=== PATIENT | female | born 1935 | race Caucasian/White ===

== ENCOUNTER 2016-12-12 18:18 | Inpatient (IN) | payer MEDICARE, OTHER ==
[2016-12-12] MEDS ORDERED: Sodium Chloride 0.9% 1,000 ML IV ONE (19:28)
[2016-12-12] MEDS ORDERED: Sodium Chloride 0.9% 1,000 ML ONE (19:33)
[2016-12-12 19:43] LABS: BASO % 0.2 % (0.0-2.0); EOS % 0.1 % (0.0-4.0); HEMATOCRIT 44.7 % (34.0-47.0); LYMPH # 0.5 K/uL (1.0-4.3); LYMPH % 4.3 % (20.0-40.0); MEAN CELL VOLUME 94.9 fL (81.0-99.0); MEAN CORPUSCULAR HEMOGLOBIN 30.9 pg (27.0-31.0); MEAN CORPUSCULAR HGB CONC 32.5 g/dL (33.0-37.0); MONO # 0.8 K/uL (0.0-0.8); PLATELET COUNT 306 K/uL (130-400); RED CELL DISTRIBUTION WIDTH 13.3 % (11.5-14.5); WHITE BLOOD COUNT 11.7 K/uL (4.8-10.8)
[2016-12-12 19:56] LABS: POTASSIUM 4.5 mmol/L (3.6-5.2)
--- NOTE | 2016-12-12 19:57 | C.PDOC ---
History Of Present Illness The patient, an 81 y/o female, presents to the ED for evaluation of abdominal discomfort and diarrhea which began this morning. Patient states she ate a croissant and drank coffee for breakfast this morning. Afterwards, patient began experiencing multiple episodes of profuse, watery diarrhea. She also reports nausea but denies vomiting. Patient now experiencing weakness, dryness, and lightheadedness and presents for further evaluation. She denies fever, chills, dizziness. Time Seen by Provider: 12/12/16 19:10 Chief Complaint (Nursing): GI Problem History Per: Patient History/Exam Limitations: no limitations Onset/Duration Of Symptoms: Hrs Current Symptoms Are (Timing): Still Present Quality Of Discomfort: "Pain" Associated Symptoms: Nausea, Diarrhea. denies: Fever, Chills, Vomiting Additional History Per: Patient Past Medical History Reviewed: Historical Data, Nursing Documentation, Vital Signs Vital Signs: Last Vital Signs Temp 97.7 F 12/12/16 18:30 Pulse 81 12/12/16 18:30 Resp 18 12/12/16 18:30 BP 107/69 12/12/16 18:30 Pulse Ox 98 12/12/16 20:00 - Medical History PMH: HTN, Hyperlipidemia Surgical History: Tonsillectomy Family History: States: Unknown Family Hx - Social History Hx Alcohol Use: No Hx Substance Use: No - Immunization History Hx Tetanus Toxoid Vaccination: No Hx Influenza Vaccination: Yes Hx Pneumococcal Vaccination: Yes Review Of Systems Except As Marked, All Systems Reviewed And Found Negative. Constitutional: Positive for: Weakness. Negative for: Fever, Chills Gastrointestinal: Positive for: Nausea, Abdominal Pain, Diarrhea. Negative for : Vomiting Neurological: Positive for: Other (+lightheaded) Physical Exam - Physical Exam Appears: Non-toxic, No Acute Distress Skin: Normal Color, Warm, Dry Head: Atraumatic, Normacephalic Eye(s): bilateral: Normal Inspection Oral Mucosa: Dry Neck: Normal ROM, Supple Chest: Symmetrical, No Deformity, No Tenderness Cardiovascular: Rhythm Regular, No Murmur Respiratory: Normal Breath Sounds, No Rales, No Rhonchi, No Wheezing Gastrointestinal/Abdominal: Bowel Sounds, Soft, No Tenderness, No Guarding, No Rebound Back: Normal Inspection, No Vertebral Tenderness, No Paraspinal Tenderness Extremity: Normal ROM, Capillary Refill (less than 2 seconds ) Neurological/Psych: Oriented x3, Normal Speech, Normal Cognition Gait: Steady ED Course And Treatment - Laboratory Results Result Diagrams: 12/12/16 19:37 12/12/16 19:37 Lab Interpretation: Abnormal (Elevated WBC with significant bandemia, Elevated BUN Cr 22, 1.3 HCO3 17) O2 Sat by Pulse Oximetry: 98 (on RA) Pulse Ox Interpretation: Normal Progress Note: labs ordered and reviewed. Patient received IV Fluids. Reevaluation Time: 21:39 Reassessment Condition: Unchanged (Still having profuse watery stools, abdomen not tender.) - Physician Consult Information Time Consulting Physician Contacted: 21:39 Physician Contacted: Olayinka Whalen Outcome Of Conversation: Patient to be admitted for evaluation of diarrhea associated with abdominal pain and dehydration. CT angio ordered to r/o ischemic bowel. Disposition - Disposition Disposition: HOSPITALIZED Disposition Time: 21:41 Condition: STABLE - POA Present On Arrival: None - Clinical Impression Clinical Impression: Diarrhea, Dehydration - Scribe Statement The provider has reviewed the documentation as recorded by the Scribe (Carmel Culp) Provider Attestation: All medical record entries made by the Scribe were at my direction and personally dictated by me. I have reviewed the chart and agree that the record accurately reflects my personal performance of the history, physical exam, medical decision making, and the department course for this patient. I have also personally directed, reviewed, and agree with the discharge instructions and disposition.
[2016-12-12 19:58] LABS: ALB/GLOB RATIO 1.3 (1.0-2.1); BILIRUBIN,TOTAL 0.7 mg/dL (0.2-1.3)
[2016-12-12 19:59] LABS: CALCIUM 10.7 mg/dl (8.6-10.4)
[2016-12-12 20:49] LABS: NEUTROPHIL 50 % (50-75); TOTAL CELLS COUNTED 100
[2016-12-12 20:51] LABS: LARGE PLATELETS PRESENT
[2016-12-12] MEDS ORDERED: Iodixanol 320 MG/ML 100 ML BOTTLE IV ONE (21:33)
--- NOTE | 2016-12-12 21:39 | CP.PCM.HP ---
<Bakari Beltran - Last Filed: 12/13/16 00:27> History of Present Illness - History of Present Illness History of Present Illness: CC: abdominal pain, diarrhea 81 F with PMH of DM, HTN, HLD presents to [facility] with complaint of abdominal pain and diarrhea. Patient stated that her symptoms began early Saturday morning. Patient had about 30 episodes of diarrhea since that time. Patient reports sudden onset. She states she never experienced these symptoms in the past. Patient stated that Saturday evening she felt fine and had only eaten steak, rice, and beans. Patient denies recent illness or sick contacts. She is currently denying any pain, stating it had resolved. She rated that abdominal pain at its worst as 7/10 in severity. She described the pain as constant, sharp, and cramping located in the epigastrium. Patient denies any exacerbating or alleviating factors. Admits to chills, nausea, diarrhea, fatigue , weakness, incontinence. Denies fevers, cp, sob, palpitations, vomiting, urinary symptoms, URI symptoms, body aches. PMD: Dr. Tony PMH: DM, HTN, HLD Meds: As per EMR Allergy: NKDA Psh: Tonsillectomy as child Hosp: HTN urgency last year FH: ESRD, DM, CA, HTN Social: lives alone, ambulates and handles ADLs without assistance, denies tobacco/etoh/illicit drug use Present on Admission - Present on Admission Any Indicators Present on Admission: No History of DVT/PE: No History of Uncontrolled Diabetes: No Urinary Catheter: No Decubitus Ulcer Present: No Review of Systems - Constitutional Constitutional: Chills, Fatigue, Weakness. absent: Fever - EENT Eyes: absent: Blurred Vision, Change in Vision, Discharge, Loss of Peripheral Vision Ears: absent: Ear Discharge, Dizziness Nose/Mouth/Throat: absent: Nasal Congestion, Nasal Discharge, Nasal Trauma, Mouth Pain, Sore Throat - Breasts Breasts: absent: Mass, Pain - Cardiovascular Cardiovascular: absent: Chest Pain, Chest Pain at Rest, Chest Pain with Activity , Diaphoresis, Dyspnea, Palpitations - Respiratory Respiratory: absent: Cough, Dyspnea, Hemoptysis - Gastrointestinal Gastrointestinal: Abdominal Pain, Diarrhea, Fecal Incontinence, Nausea. absent : Constipation, Vomiting - Genitourinary Genitourinary: absent: Change in Urinary Stream, Difficulty Urinating, Dysuria, Urinary Incontinence - Musculoskeletal Musculoskeletal: absent: Arthralgias, Atrophy, Back Pain, Myalgias, Numbness, Stiffness, Tingling - Integumentary Integumentary: absent: Alopecia, Lesions, New Lesions, Sores - Neurological Neurological: Weakness. absent: Confusion, Dizziness, Numbness, Focal Weakness , Headaches, Paresthesias, Syncope, Tingling, Tremor, Vertigo - Psychiatric Psychiatric: absent: Anxiety, Depression, Homicidal Ideation, Suicidal Ideation - Endocrine Endocrine: Fatigue. absent: Excessive Sweating, Heat Intolorance, Palpitations , Polydipsia, Polyphagia, Polyuria - Hematologic/Lymphatic Hematologic: absent: Easy Bleeding, Easy Bruising, Lymphadenopathy Past Patient History - Past Social History Smoking Status: Never Smoked - CARDIAC Hx Hypertension: Yes - ENDOCRINE/METABOLIC Hx Diabetes Mellitus Type 2: Yes - PSYCHIATRIC Hx Substance Use: No - SURGICAL HISTORY Hx Tonsillectomy: Yes - ANESTHESIA Hx Anesthesia: No Hx Anesthesia Reactions: No Meds Allergies/Adverse Reactions: Allergies Allergy/AdvReac Type Severity Reaction Status Date / Time No Known Allergies Allergy Verified 12/12/16 18:32 Physical Exam - Constitutional Appears: No Acute Distress - Head Exam Head Exam: ATRAUMATIC, NORMOCEPHALIC - Eye Exam Eye Exam: EOMI, Normal appearance Pupil Exam: PERRL - ENT Exam ENT Exam: Mucous Membranes Dry - Neck Exam Neck exam: Positive for: Normal Inspection - Respiratory Exam Respiratory Exam: Clear to Auscultation Bilateral, NORMAL BREATHING PATTERN - Cardiovascular Exam Cardiovascular Exam: REGULAR RHYTHM, +S1, +S2 - GI/Abdominal Exam GI & Abdominal Exam: Hyperactive Bowel Sounds, Soft, Tenderness. absent: Distended, Firm, Guarding, Rebound - Extremities Exam Extremities exam: Positive for: normal capillary refill, pedal pulses present. Negative for: calf tenderness, pedal edema, tenderness - Back Exam Back exam: absent: CVA tenderness (L), CVA tenderness (R) - Neurological Exam Neurological exam: Alert, CN II-XII Intact, Oriented x3 - Psychiatric Exam Psychiatric exam: Normal Affect, Normal Mood - Skin Skin Exam: Dry, Intact, Normal Color, Warm Results - Vital Signs Recent Vital Signs: Last Vital Signs Temp 97.7 F 12/12/16 18:30 Pulse 81 05/10/17 18:30 Resp 18 12/12/16 18:30 BP 107/69 12/12/16 18:30 Pulse Ox 98 12/12/16 20:00 - Labs Result Diagrams: 12/12/16 19:37 12/12/16 19:37 Labs: Laboratory Results - last 24 hr 12/12/16 12/12/16 19:37 19:37 WBC 11.7 H RBC 4.71 Hgb 14.5 D Hct 44.7 MCV 94.9 MCH 30.9 MCHC 32.5 L RDW 13.3 Plt Count 306 MPV 8.0 Neut % (Auto) 88.4 H Lymph % (Auto) 4.3 L Mcdonald % (Auto) 7.0 Eos % (Auto) 0.1 Baso % (Auto) 0.2 Neut # 10.4 H Lymph # 0.5 L Mcdonald # 0.8 Eos # 0.0 Baso # 0.0 Neutrophils % (Manual) 50 Band Neutrophils % 33 H* Lymphocytes % (Manual) 10 L Monocytes % (Manual) 7 Platelet Estimate Normal Large Platelets Present Microcytosis (manual) Slight Tear Drop Cells Slight Sodium 135 Potassium 4.5 Chloride 98 Carbon Dioxide 17 L Anion Gap 25 H BUN 22 H Creatinine 1.3 H Est GFR ( Amer) 48 Est GFR (Non-Af Amer) 39 Random Glucose 205 H Calcium 10.7 H Total Bilirubin 0.7 AST 23 ALT 18 Alkaline Phosphatase 65 Total Protein 9.0 H Albumin 5.1 H Globulin 3.9 Albumin/Globulin Ratio 1.3 Assessment & Plan - Assessment and Plan (Free Text) Plan: 1. Diarrhea Med/surg NPO CT abd pelvis with contrast: Giardia, Norovirus, Salmonella, Shigella studies Stool culture Stool leukocytes C diff toxins Ova and parasite Influenza A & B Tylenol 650 mg PO Q6H PRN fever Zofran 4 mg IVP Q6H PRN NS 100 cc/hr 2. DM Hold metformin due to contrast ISS Accuchecks f/u HA1C Monitor glucose 3. HTN Losartan 100 mg PO daily 4. HLD Crestor 5 mg PO HS 5. Prophylactic Measures Lovenox 40 SC daily Protonix 40 mg IVP daily Scds ASA 81 mg PO daily <Olayinka Whalen - Last Filed: 12/13/16 06:23> Results - Vital Signs Recent Vital Signs: Last Vital Signs Temp 98.4 F 12/13/16 00:00 Pulse 75 12/13/16 00:00 Resp 20 12/13/16 00:00 BP 100/61 12/13/16 00:00 Pulse Ox 96 12/13/16 00:00 - Labs Result Diagrams: 12/12/16 19:37 12/12/16 19:37 Assessment & Plan - Date & Time Date: 12/13/16 (I have seen and examined the patient. I agree with the findings and plan of care as documented by Dr. Beltran. Patient with diarrhea. Denies any blood. Denies any recent antibiotic use. Stool studies. Fluid repletion. Also with diabetes. Monitor with accuchecks. Hold metformin for now. Monitor for acute changes.) Time: 06:21 Attending/Attestation - Attestation I have personally seen and examined this patient.: Yes I have fully participated in the care of the patient.: Yes I have reviewed all pertinent clinical information: Yes
[2016-12-12 22:29] VITALS: RESP 20
--- NOTE | 2016-12-12 22:31 | CT ---
EXAM: CT Abdomen and Pelvis With Intravenous Contrast CLINICAL HISTORY: 81 years old, female; Pain and signs and symptoms; Abdominal tenderness and nausea; Abdominal pain; Generalized; Additional info: Abdominal pain with diarrhea TECHNIQUE: Axial computed tomography images of the abdomen and pelvis with intravenous contrast. This CT exam was performed using one or more of the following dose reduction techniques: automated exposure control, adjustment of the mA and/or kV according to patient size, and/or use of iterative reconstruction technique. Coronal and sagittal reformatted images were created and reviewed. CONTRAST: 100 mL of VISIPAQUE 320 administered intravenously. COMPARISON: No relevant prior studies available. FINDINGS: Lower thorax: There is minimal bibasilar atelectasis. ABDOMEN: Liver: There is a diffuse decrease in hepatic parenchymal density, consistent with fatty infiltration. There are no focal liver lesions present. Gallbladder and bile ducts: The gallbladder is contracted but otherwise normal. No calcified stones. No ductal dilation. Pancreas: Pancreas is atrophic and slightly fatty replaced. No ductal dilation. Spleen: The spleen is normal. Adrenals: The adrenal glands are normal. Kidneys and ureters: 11 mm left upper pole renal cyst. Left kidney also demonstrates a few sub-see him hypodensities which are to small to adequately characterize. There is no evidence of hydronephrosis. Stomach and bowel: There are fluid-filled small and large bowel loops which are largely normal in caliber. This suggests enterocolitis. A few small bowel loops are mildly dilated. This suggests some degree of ileus as well. Please correlate clinically. The stomach is normal. Appendix: No findings to suggest acute appendicitis. PELVIS: Bladder: Bladder is decompressed. Reproductive: Unremarkable as visualized. ABDOMEN and PELVIS: Intraperitoneal space: There is no evidence of free intraperitoneal fluid. There is no free intraperitoneal air. Bones/joints: There are mild degenerative changes present. There is mild diffuse osteopenia. No acute fracture. No dislocation. Soft tissues: There is diastases recti without ashley hernia. Vasculature: The aorta demonstrates moderate atherosclerotic calcification. No abdominal aortic aneurysm. Lymph nodes: There is no evidence of lymphadenopathy. IMPRESSION: There are fluid-filled small and large bowel loops which are largely normal in caliber. This suggests enterocolitis. A few small bowel loops are mildly dilated. This suggests some degree of ileus as well. Please correlate clinically.
[2016-12-12] MEDS ORDERED: Sodium Chloride 0.9% 1,000 ML IV SCH (23:15)
[2016-12-13] MEDS: Dextrose 5%/0.45% NS 1,000 ML IV SCH ×2 (06:45→17:50)
[2016-12-13 07:17] LABS: LYMPH # 0.9 K/uL (1.0-4.3); MEAN PLATELET VOLUME 8.1 fL (7.2-11.7); MONO # 0.7 K/uL (0.0-0.8); NRBC % 0.1 % (0.0-2.0); WHITE BLOOD COUNT 7.9 K/uL (4.8-10.8)
[2016-12-13 07:38] LABS: BASO % 0.3 % (0.0-2.0); HEMATOCRIT 37.1 % (34.0-47.0); LYMPH % 11.4 % (20.0-40.0); MEAN CELL VOLUME 95.7 fL (81.0-99.0); MEAN CORPUSCULAR HEMOGLOBIN 31.2 pg (27.0-31.0); MEAN CORPUSCULAR HGB CONC 32.6 g/dL (33.0-37.0); RED CELL DISTRIBUTION WIDTH 13.1 % (11.5-14.5)
[2016-12-13 07:58] LABS: POTASSIUM 4.1 mmol/L (3.6-5.2)
[2016-12-13 08:00] LABS: ALB/GLOB RATIO 1.3 (1.0-2.1); BILIRUBIN,TOTAL 0.6 mg/dL (0.2-1.3); CALCIUM 8.8 mg/dl (8.6-10.4); TOTAL PROTEIN 7.1 g/dL (6.3-8.3)
[2016-12-13 08:10] LABS: INR 1.2
[2016-12-13] MEDS: (Novolin R) Insulin Human Regular 100 units/ml vial SC SCH ×4 (08:43→22:36)
[2016-12-13] MEDS: Metoprolol Succinate 25 mg XL Tab PO SCH (11:28)
[2016-12-13] MEDS: Enoxaparin 40 mg Syringe SC SCH (11:35)
--- NOTE | 2016-12-13 11:44 | CP.PCM.PN ---
<AdrySuze - Last Filed: 12/13/16 19:06> Subjective - Date & Time of Evaluation Date of Evaluation: 12/13/16 Time of Evaluation: 07:15 - Subjective Subjective: PGY1 Medicine Note for Dr. Munoz Patient seen and examined at bedside. Patient reports she feels much better this AM and only had 2 episodes of diarrhea overnight. She denies noticing any blood in her stool or dark stool. She also denies any fever, chills, chest pain , palpitations, SOB, cough, abdominal pain, nausea, vomiting, constipation, pain in her legs, bilaterally, dysuria, blood in her urine. She has been NPO overnight and has only been eating ice chips. Objective - Vital Signs/Intake and Output Vital Signs (last 24 hours): Temp Pulse Resp BP Pulse Ox 98.4 F 75 20 98/60 L 97 12/13/16 08:00 12/13/16 08:00 12/13/16 08:00 12/13/16 08:00 12/13/16 08:00 Intake and Output: 12/13/16 12/13/16 06:59 18:59 Intake Total 800 Output Total 2 Balance 798 - Medications Medications: Current Medications Acetaminophen (Tylenol 325mg Tab) 650 mg PO Q6 PRN PRN Reason: Fever >100.4 F Aspirin (Ecotrin) 81 mg PO DAILY COUNT INCLUDES THE [facility] Last Admin: 12/13/16 11:27 Dose: 81 mg Enoxaparin Sodium (Lovenox) 40 mg SC DAILY COUNT INCLUDES THE [facility] Last Admin: 12/13/16 11:35 Dose: 40 mg Dextrose/Sodium Chloride (Dextrose 5%/0.45% Ns 1000 Ml) 1,000 mls @ 100 mls/hr IV .Q10H COUNT INCLUDES THE [facility] Last Admin: 12/13/16 06:45 Dose: 100 mls/hr Insulin Human Regular (Novolin R) 0 unit SC ACHS PITO PRN Reason: Protocol Last Admin: 12/13/16 08:43 Dose: Not Given Losartan Potassium (Cozaar) 100 mg PO DAILY COUNT INCLUDES THE [facility] Last Admin: 12/13/16 11:27 Dose: Not Given Metoprolol Succinate (Toprol Xl) 25 mg PO DAILY COUNT INCLUDES THE [facility] Last Admin: 12/13/16 11:28 Dose: Not Given Ondansetron HCl (Zofran Inj) 4 mg IVP Q6 PRN PRN Reason: Nausea/Vomiting Pantoprazole Sodium (Protonix Inj) 40 mg IVP DAILY COUNT INCLUDES THE [facility] Last Admin: 12/13/16 11:27 Dose: 40 mg Rosuvastatin Calcium (Crestor) 5 mg PO HS PITO - Labs Labs: 12/13/16 07:04 12/13/16 07:04 PT 13.3 SECONDS (9.7-12.2) H 12/13/16 07:04 INR 1.2 12/13/16 07:04 APTT 32 SECONDS (21-34) 12/13/16 07:04 - Constitutional Appears: Non-toxic, No Acute Distress - Head Exam Head Exam: ATRAUMATIC, NORMAL INSPECTION, NORMOCEPHALIC - Eye Exam Eye Exam: Normal appearance. absent: Conjunctival injection, Scleral icterus - ENT Exam ENT Exam: Mucous Membranes Moist - Neck Exam Neck Exam: Normal Inspection. absent: Tenderness - Respiratory Exam Respiratory Exam: Clear to Ausculation Bilateral, NORMAL BREATHING PATTERN. absent: Accessory Muscle Use, Rales, Rhonchi, Wheezes, Respiratory Distress - Cardiovascular Exam Cardiovascular Exam: REGULAR RHYTHM, RRR, +S1, +S2 - GI/Abdominal Exam GI & Abdominal Exam: Soft, Normal Bowel Sounds. absent: Firm, Guarding, Rigid, Tenderness - Extremities Exam Extremities Exam: Normal Capillary Refill, Normal Inspection. absent: Pedal Edema, Tenderness - Back Exam Back Exam: NORMAL INSPECTION. absent: rash noted - Neurological Exam Neurological Exam: Alert, Awake, Oriented x3 - Psychiatric Exam Psychiatric exam: Normal Affect, Normal Mood - Skin Skin Exam: Dry. absent: Intact, Normal Color, Warm Assessment and Plan - Assessment and Plan (Free Text) Assessment: 81 F with PMH of DM, HTN, HLD presents to [facility] with complaint of abdominal pain and diarrhea Plan: 1. Diarrhea CT abd pelvis with contrast: fluid filled small and large bowel loops which are largely normal in caliber. This suggests enterocolitis. A few small bowel loops are mildly dilated. Suggests some degree of ileus as well Soft diet- ADAT f/u Giardia, Norovirus, Salmonella, Shigella studies f/u Stool culture + Stool leukocytes C diff negative f/u Ova and parasite f/u Influenza A & B Tylenol 650 mg PO Q6H PRN fever Zofran 4 mg IVP Q6H PRN D5NS 100 cc/hr 2. DM Hold metformin due to contrast ISS Accuchecks f/u HA1C Monitor glucose 3. HTN ASA 81mg po daily Losartan 100 mg PO daily Toprol XL 25mg po daily 4. HLD Crestor 5 mg PO HS 5. Prophylactic Measures Lovenox 40 SC daily Protonix 40 mg IVP daily Scds Soft heart healthy mod carb diet- ADAT Plan discussed with Dr. Alexander Rider PGY1 <Nahid Munoz - Last Filed: 12/14/16 16:25> Objective - Vital Signs/Intake and Output Vital Signs (last 24 hours): Temp Pulse Resp BP Pulse Ox 98.7 F 73 20 111/65 98 12/14/16 08:35 12/14/16 08:35 12/14/16 08:35 12/14/16 08:35 12/14/16 08:35 Intake and Output: 12/14/16 12/14/16 06:59 18:59 Intake Total 2030 Output Total 400 Balance 1630 - Medications Medications: Current Medications Acetaminophen (Tylenol 325mg Tab) 650 mg PO Q6 PRN PRN Reason: Fever >100.4 F Last Admin: 12/13/16 16:12 Dose: 650 mg Aspirin (Ecotrin) 81 mg PO DAILY COUNT INCLUDES THE [facility] Last Admin: 12/14/16 11:02 Dose: 81 mg Enoxaparin Sodium (Lovenox) 40 mg SC DAILY COUNT INCLUDES THE [facility] Last Admin: 12/14/16 11:03 Dose: 40 mg Dextrose/Sodium Chloride (Dextrose 5%/0.45% Ns 1000 Ml) 1,000 mls @ 100 mls/hr IV .Q10H COUNT INCLUDES THE [facility] Last Admin: 12/14/16 12:47 Dose: Not Given Ciprofloxacin (Cipro 200mg/100ml D5w) 100 mls @ 100 mls/hr IVPB Q12H COUNT INCLUDES THE [facility] Last Admin: 12/14/16 12:46 Dose: 100 mls/hr Metronidazole 250 mg/ (Miscellaneous) 50 mls @ 100 mls/hr IVPB Q8 COUNT INCLUDES THE [facility] Insulin Human Regular (Novolin R) 0 unit SC ACHS PITO PRN Reason: Protocol Last Admin: 12/14/16 12:47 Dose: 1 unit Losartan Potassium (Cozaar) 100 mg PO DAILY COUNT INCLUDES THE [facility] Last Admin: 12/14/16 11:02 Dose: 100 mg Metoprolol Succinate (Toprol Xl) 25 mg PO DAILY COUNT INCLUDES THE [facility] Last Admin: 12/14/16 11:02 Dose: 25 mg Ondansetron HCl (Zofran Inj) 4 mg IVP Q6 PRN PRN Reason: Nausea/Vomiting Pantoprazole Sodium (Protonix Inj) 40 mg IVP DAILY COUNT INCLUDES THE [facility] Last Admin: 12/14/16 11:02 Dose: 40 mg Rosuvastatin Calcium (Crestor) 5 mg PO HS COUNT INCLUDES THE [facility] Last Admin: 12/13/16 21:20 Dose: 5 mg - Labs Labs: 12/14/16 07:07 12/14/16 07:07 PT 13.3 SECONDS (9.7-12.2) H 12/13/16 07:04 INR 1.2 12/13/16 07:04 APTT 32 SECONDS (21-34) 12/13/16 07:04 Attending/Attestation - Attestation I have personally seen and examined this patient.: Yes I have fully participated in the care of the patient.: Yes I have reviewed all pertinent clinical information, including history, physical exam and plan: Yes Notes (Text): 12/14/16 16:25 Patient was seen and examined at bedside with the resident This a late computer entry Patient status feeling better. Diarrhea has improved. No nausea or vomiting reported We will continue current management Follow-up stool studies. I discussed the plan of care with the resident and agree with the above history and physical and assessment/plan by the resident.
[2016-12-13 11:48] LABS: RBC URINE 2 /hpf (0-3); URINE BILIRUBIN NEGATIVE (NEGATIVE); URINE BLOOD NEGATIVE (NEGATIVE); URINE COLOR Amber (YELLOW); URINE GLUCOSE (UA) NORMAL (Normal); URINE KETONE NEGATIVE (NEGATIVE); URINE LEUKOCYTE ESTERASE 1+ Leu/uL (Negative); URINE PROTEIN 1+ mg/dL (NEGATIVE); URINE UROBILINOGEN NORMAL mg/dL (0.2-1.0); WBC URINE 8 /hpf (0-5)
[2016-12-13 13:17] LABS: C DIFF TOXIN A B NEGATIVE (NEGATIVE)
[2016-12-13 16:24] LABS: FECAL LEUKOCYTES POSITIVE (NEGATIVE)
[2016-12-14] MEDS: Dextrose 5%/0.45% NS 1,000 ML IV SCH ×2 (04:00→12:47)
[2016-12-14 07:23] LABS: BASO % 0.4 % (0.0-2.0); EOS # 0.3 K/uL (0.0-0.7); EOS % 4.6 % (0.0-4.0); HEMATOCRIT 33.4 % (34.0-47.0); LYMPH # 1.8 K/uL (1.0-4.3); LYMPH % 24.8 % (20.0-40.0); MEAN CELL VOLUME 94.5 fL (81.0-99.0); MEAN CORPUSCULAR HEMOGLOBIN 31.8 pg (27.0-31.0); MEAN CORPUSCULAR HGB CONC 33.7 g/dL (33.0-37.0); MEAN PLATELET VOLUME 8.2 fL (7.2-11.7); MONO # 0.5 K/uL (0.0-0.8); MONO % 7.5 % (0.0-10.0); NRBC % 0.1 % (0.0-2.0); PLATELET COUNT 217 K/uL (130-400); RED CELL DISTRIBUTION WIDTH 13.2 % (11.5-14.5); WHITE BLOOD COUNT 7.2 K/uL (4.8-10.8)
[2016-12-14 07:28] LABS: CHLORIDE 105 mmol/L (98-107)
[2016-12-14 07:29] LABS: POTASSIUM 3.6 mmol/L (3.6-5.2); SODIUM 135 mmol/L (132-148)
[2016-12-14] MEDS: (Novolin R) Insulin Human Regular 100 units/ml vial SC SCH ×2 (07:30→12:47)
[2016-12-14 07:31] LABS: BILIRUBIN,TOTAL 0.4 mg/dL (0.2-1.3); CARBON DIOXIDE 19 mmol/L (22-30); GFR AFRICAN-AMERICAN > 60
[2016-12-14 07:32] LABS: ALB/GLOB RATIO 1.1 (1.0-2.1); ALKALINE PHOSPHATASE 43 U/L (38-126); ALT/SGPT 22 U/L (9-52); AST/SGOT 20 U/L (14-36); BLOOD UREA NITROGEN 22 mg/dL (7-17); CALCIUM 8.1 mg/dl (8.6-10.4); GLUCOSE,RANDOM 106 mg/dL (65-105); MAGNESIUM 1.7 mg/dL (1.6-2.3); PHOSPHOROUS 2.4 mg/dL (2.5-4.5); TOTAL PROTEIN 6.8 g/dL (6.3-8.3)
[2016-12-14] MEDS: Metoprolol Succinate 25 mg XL Tab PO SCH (11:02)
[2016-12-14] MEDS: Enoxaparin 40 mg Syringe SC SCH (11:03)
[2016-12-14] MEDS ORDERED: Ciprofloxacin 200mg/100ml D5W 100 ML IVPB SCH (12:00)
[2016-12-14 12:46] LABS: EOSINOPHIL 5 % (0-4); NEUTROPHIL 55 % (50-75); TOTAL CELLS COUNTED 100
[2016-12-14] MEDS ORDERED: metroNIDAZOLE IV 500 mg/100 ml 250 MG in Premixed IV 1 EA IVPB SCH (14:00)
--- NOTE | 2016-12-14 15:36 | CP.PCM.DIS ---
<RaffiVineet - Last Filed: 12/14/16 16:36> Provider - Provider Date of Admission: 12/12/16 21:42 Attending physician: Olayinka Whalen MD Time Spent in preparation of Discharge (in minutes): 32 Hospital Course - Lab Results Lab Results: Most Recent Lab Values WBC 7.2 K/uL (4.8-10.8) 12/14/16 07:07 RBC 3.53 Mil/uL (3.80-5.20) L 12/14/16 07:07 Hgb 11.2 g/dL (11.0-16.0) 12/14/16 07:07 Hct 33.4 % (34.0-47.0) L 12/14/16 07:07 MCV 94.5 fL (81.0-99.0) 12/14/16 07:07 MCH 31.8 pg (27.0-31.0) H 12/14/16 07:07 MCHC 33.7 g/dL (33.0-37.0) 12/14/16 07:07 RDW 13.2 % (11.5-14.5) 12/14/16 07:07 Plt Count 217 K/uL (130-400) 12/14/16 07:07 MPV 8.2 fL (7.2-11.7) 12/14/16 07:07 Neut % (Auto) 62.7 % (50.0-75.0) 12/14/16 07:07 Lymph % (Auto) 24.8 % (20.0-40.0) 12/14/16 07:07 [place] % (Auto) 7.5 % (0.0-10.0) 12/14/16 07:07 Eos % (Auto) 4.6 % (0.0-4.0) H 12/14/16 07:07 Baso % (Auto) 0.4 % (0.0-2.0) 12/14/16 07:07 Neut # 4.5 K/uL (1.8-7.0) 12/14/16 07:07 Lymph # 1.8 K/uL (1.0-4.3) 12/14/16 07:07 [place] # 0.5 K/uL (0.0-0.8) 12/14/16 07:07 Eos # 0.3 K/uL (0.0-0.7) 12/14/16 07:07 Baso # 0.0 K/uL (0.0-0.2) 12/14/16 07:07 Neutrophils % (Manual) 55 % (50-75) 12/14/16 07:07 Band Neutrophils % 7 % (0-2) H 12/14/16 07:07 Lymphocytes % (Manual) 30 % (20-40) 12/14/16 07:07 Monocytes % (Manual) 3 % (0-10) 12/14/16 07:07 Eosinophils % (Manual) 5 % (0-4) H 12/14/16 07:07 Platelet Estimate Normal (NORMAL) 12/14/16 07:07 Large Platelets Present 12/12/16 19:37 Hypochromasia (manual) Slight 12/14/16 07:07 Poikilocytosis (manual Slight 12/14/16 07:07 Anisocytosis (manual) Slight 12/14/16 07:07 Microcytosis (manual) Slight 12/12/16 19:37 Tear Drop Cells Slight 12/12/16 19:37 Kersey Cells Slight 12/14/16 07:07 PT 13.3 SECONDS (9.7-12.2) H 12/13/16 07:04 INR 1.2 12/13/16 07:04 APTT 32 SECONDS (21-34) 12/13/16 07:04 Sodium 135 mmol/L (132-148) 12/14/16 07:07 Potassium 3.6 mmol/L (3.6-5.2) 12/14/16 07:07 Chloride 105 mmol/L (98-107) 12/14/16 07:07 Carbon Dioxide 19 mmol/L (22-30) L 12/14/16 07:07 Anion Gap 15 (10-20) 12/14/16 07:07 BUN 22 mg/dL (7-17) H 12/14/16 07:07 Creatinine 0.9 MG/DL (0.7-1.2) 12/14/16 07:07 Est GFR ( Amer) > 60 12/14/16 07:07 Est GFR (Non-Af Amer) > 60 12/14/16 07:07 POC Glucose (mg/dL) 194 mg/dL (65-110) H 12/14/16 11:45 Random Glucose 106 mg/dL (65-105) H 12/14/16 07:07 Calcium 8.1 mg/dl (8.6-10.4) L 12/14/16 07:07 Phosphorus 2.4 mg/dL (2.5-4.5) L 12/14/16 07:07 Magnesium 1.7 mg/dL (1.6-2.3) 12/14/16 07:07 Total Bilirubin 0.4 mg/dL (0.2-1.3) 12/14/16 07:07 AST 20 U/L (14-36) 12/14/16 07:07 ALT 22 U/L (9-52) 12/14/16 07:07 Alkaline Phosphatase 43 U/L (38-126) 12/14/16 07:07 Total Protein 6.8 g/dL (6.3-8.3) 12/14/16 07:07 Albumin 3.6 g/dL (3.5-5.0) 12/14/16 07:07 Globulin 3.2 gm/dL (2.2-3.9) 12/14/16 07:07 Albumin/Globulin Ratio 1.1 (1.0-2.1) 12/14/16 07:07 Urine Color Pat (YELLOW) 12/12/16 11:39 Urine Clarity Hazy (Clear) 12/12/16 11:39 Urine pH 5.0 (5.0-8.0) 12/12/16 11:39 Ur Specific [place] 1.015 (1.003-1.030) 12/12/16 11:39 Urine Protein 1+ mg/dL (NEGATIVE) H 12/12/16 11:39 Urine Glucose (UA) Normal mg/dL (Normal) 12/12/16 11:39 Urine Ketones Negative mg/dL (NEGATIVE) 12/12/16 11:39 Urine Blood Negative (NEGATIVE) 12/12/16 11:39 Urine Nitrate Negative (NEGATIVE) 12/12/16 11:39 Urine Bilirubin Negative (NEGATIVE) 12/12/16 11:39 Urine Urobilinogen Normal mg/dL (0.2-1.0) 12/12/16 11:39 Ur Leukocyte Esterase 1+ Herson/uL (Negative) H 12/12/16 11:39 Urine WBC (Auto) 8 /hpf (0-5) H 12/12/16 11:39 Urine RBC (Auto) 2 /hpf (0-3) 12/12/16 11:39 Ur Squamous Epith Cells 26 /hpf (0-5) H 12/12/16 11:39 Stool Leukocytes, Qual Positive (NEGATIVE) H 12/12/16 23:21 C. difficile Ag & Toxin Negative (NEGATIVE) 12/12/16 23:21 Influenza Typ A,B (EIA) Negative for flu a/b (NEGATIVE) 12/12/16 Unknown - Hospital Course Hospital Course: HPI: Pt is an 81 F with PMH of DM, HTN, HLD presents to [facility] with complaint of abdominal pain and diarrhea. Patient stated that her symptoms began early Saturday morning. Patient had about 30 episodes of diarrhea since that time. Patient reports sudden onset. She states she never experienced these symptoms in the past. Patient stated that Saturday evening she felt fine and had only eaten steak, rice, and beans. Patient denies recent illness or sick contacts. She is currently denying any pain, stating it had resolved. She rated that abdominal pain at its worst as 7/10 in severity. She described the pain as constant, sharp, and cramping located in the epigastrium. Patient denies any exacerbating or alleviating factors. Admits to chills, nausea, diarrhea, fatigue , weakness, incontinence. Denies fevers, cp, sob, palpitations, vomiting, urinary symptoms, URI symptoms, body aches. Hospital Course: Pt had a CT of the abd pelvis with contrast that revealed fluid filled small and large bowel loops which are largely normal in caliber. This suggests enterocolitis. A few small bowel loops are mildly dilated. Suggests some degree of ileus as well. (please see full report). Pt had a white blood cell count of 11,700 and bands of 33 upon admission. PT was afebrile, nontachycardic. C. diff antigen and toxin was negative. Pt was negative for Influenza A and B. Fecal leukocytes were positive. Stool cultures were sent. Pt was started on IV ciprofloxacin and flagyl. Pt was started on home medications for HTN and hyperlipidemia. Pt's metformin was held due to being given contrast for CT. Pt was started on insulin sliding scale for coverage. Pt was also started on GI and DVT prophylaxis. Pt's symptoms resolved with antibiotics. Pt reported that she no longer had diarrhea and abdominal pain. Leukocytosis resolved. Bandemia improved to 9. Pt was discharged on oral antibiotics and advised to follow up with PMD. Discharge Exam - Head Exam Head Exam: ATRAUMATIC, NORMAL INSPECTION, NORMOCEPHALIC - Eye Exam Eye Exam: EOMI, PERRL - ENT Exam ENT Exam: Mucous Membranes Moist. absent: Mucous Membranes Dry - Neck Exam Neck exam: Full Rom - Respiratory Exam Respiratory Exam: Clear to PA & Lateral. absent: Wheezes - Cardiovascular Exam Cardiovascular Exam: +S1, +S2. absent: Gallop, Rubs - GI/Abdominal Exam GI & Abdominal Exam: Normal Bowel Sounds, Soft. absent: Rigid, Tenderness - Extremities Exam Extremities exam: full ROM - Neurological Exam Neurological exam: Alert, Oriented x3 - Psychiatric Exam Psychiatric exam: Normal Affect, Normal Mood - Skin Skin Exam: Normal Color, Warm Discharge Plan - Discharge Medications Prescriptions: Ciprofloxacin [Cipro] 500 mg PO BID #10 tab metroNIDAZOLE [Flagyl] 500 mg PO Q8H #15 tab - Follow Up Plan Condition: STABLE Disposition: HOME/ ROUTINE Instructions: Ciprofloxacin (By mouth), Metronidazole (By mouth), Dehydration ( DC), Acute Diarrhea (GEN) Additional Instructions: Please follow up with primary medical doctor, Dr. Beard, within one week. Please resume all home medications. Please take newly prescribed medications, Ciprofloxacin and Flagyl, as prescribed. Please return to the hospital if symptoms worsen or new symptoms arise. Referrals: Brad Beard [Staff Provider] - <Nahid Munoz - Last Filed: 12/15/16 15:59> Provider - Provider Date of Admission: 12/12/16 21:42 Attending physician: Olayinka Whalen MD Hospital Course - Lab Results Lab Results: Micro Results 12/13/16 00:15 Stool Stool Culture - Final NO SALMONELLA, SHIGELLA OR CAMPYLOBACTER ISOLATED. 12/13/16 00:15 Rectum Ova and Parasite Concentrate Exam - Final Most Recent Lab Values WBC 7.2 K/uL (4.8-10.8) 12/14/16 07:07 RBC 3.53 Mil/uL (3.80-5.20) L 12/14/16 07:07 Hgb 11.2 g/dL (11.0-16.0) 12/14/16 07:07 Hct 33.4 % (34.0-47.0) L 12/14/16 07:07 MCV 94.5 fL (81.0-99.0) 12/14/16 07:07 MCH 31.8 pg (27.0-31.0) H 12/14/16 07:07 MCHC 33.7 g/dL (33.0-37.0) 12/14/16 07:07 RDW 13.2 % (11.5-14.5) 12/14/16 07:07 Plt Count 217 K/uL (130-400) 12/14/16 07:07 MPV 8.2 fL (7.2-11.7) 12/14/16 07:07 Neut % (Auto) 62.7 % (50.0-75.0) 12/14/16 07:07 Lymph % (Auto) 24.8 % (20.0-40.0) 12/14/16 07:07 [place] % (Auto) 7.5 % (0.0-10.0) 12/14/16 07:07 Eos % (Auto) 4.6 % (0.0-4.0) H 12/14/16 07:07 Baso % (Auto) 0.4 % (0.0-2.0) 12/14/16 07:07 Neut # 4.5 K/uL (1.8-7.0) 12/14/16 07:07 Lymph # 1.8 K/uL (1.0-4.3) 12/14/16 07:07 [place] # 0.5 K/uL (0.0-0.8) 12/14/16 07:07 Eos # 0.3 K/uL (0.0-0.7) 12/14/16 07:07 Baso # 0.0 K/uL (0.0-0.2) 12/14/16 07:07 Neutrophils % (Manual) 55 % (50-75) 12/14/16 07:07 Band Neutrophils % 7 % (0-2) H 12/14/16 07:07 Lymphocytes % (Manual) 30 % (20-40) 12/14/16 07:07 Monocytes % (Manual) 3 % (0-10) 12/14/16 07:07 Eosinophils % (Manual) 5 % (0-4) H 12/14/16 07:07 Platelet Estimate Normal (NORMAL) 12/14/16 07:07 Large Platelets Present 12/12/16 19:37 Hypochromasia (manual) Slight 12/14/16 07:07 Poikilocytosis (manual Slight 12/14/16 07:07 Anisocytosis (manual) Slight 12/14/16 07:07 Microcytosis (manual) Slight 12/12/16 19:37 Tear Drop Cells Slight 12/12/16 19:37 Kersey Cells Slight 12/14/16 07:07 PT 13.3 SECONDS (9.7-12.2) H 12/13/16 07:04 INR 1.2 12/13/16 07:04 APTT 32 SECONDS (21-34) 12/13/16 07:04 Sodium 135 mmol/L (132-148) 12/14/16 07:07 Potassium 3.6 mmol/L (3.6-5.2) 12/14/16 07:07 Chloride 105 mmol/L (98-107) 12/14/16 07:07 Carbon Dioxide 19 mmol/L (22-30) L 12/14/16 07:07 Anion Gap 15 (10-20) 12/14/16 07:07 BUN 22 mg/dL (7-17) H 12/14/16 07:07 Creatinine 0.9 MG/DL (0.7-1.2) 12/14/16 07:07 Est GFR ( Amer) > 60 12/14/16 07:07 Est GFR (Non-Af Amer) > 60 12/14/16 07:07 POC Glucose (mg/dL) 74 mg/dL (65-110) 12/14/16 16:32 Random Glucose 106 mg/dL (65-105) H 12/14/16 07:07 Calcium 8.1 mg/dl (8.6-10.4) L 12/14/16 07:07 Phosphorus 2.4 mg/dL (2.5-4.5) L 12/14/16 07:07 Magnesium 1.7 mg/dL (1.6-2.3) 12/14/16 07:07 Total Bilirubin 0.4 mg/dL (0.2-1.3) 12/14/16 07:07 AST 20 U/L (14-36) 12/14/16 07:07 ALT 22 U/L (9-52) 12/14/16 07:07 Alkaline Phosphatase 43 U/L (38-126) 12/14/16 07:07 Total Protein 6.8 g/dL (6.3-8.3) 12/14/16 07:07 Albumin 3.6 g/dL (3.5-5.0) 12/14/16 07:07 Globulin 3.2 gm/dL (2.2-3.9) 12/14/16 07:07 Albumin/Globulin Ratio 1.1 (1.0-2.1) 12/14/16 07:07 Urine Color Pat (YELLOW) 12/12/16 11:39 Urine Clarity Hazy (Clear) 12/12/16 11:39 Urine pH 5.0 (5.0-8.0) 12/12/16 11:39 Ur Specific [place] 1.015 (1.003-1.030) 12/12/16 11:39 Urine Protein 1+ mg/dL (NEGATIVE) H 12/12/16 11:39 Urine Glucose (UA) Normal mg/dL (Normal) 12/12/16 11:39 Urine Ketones Negative mg/dL (NEGATIVE) 12/12/16 11:39 Urine Blood Negative (NEGATIVE) 12/12/16 11:39 Urine Nitrate Negative (NEGATIVE) 12/12/16 11:39 Urine Bilirubin Negative (NEGATIVE) 12/12/16 11:39 Urine Urobilinogen Normal mg/dL (0.2-1.0) 12/12/16 11:39 Ur Leukocyte Esterase 1+ Herson/uL (Negative) H 12/12/16 11:39 Urine WBC (Auto) 8 /hpf (0-5) H 12/12/16 11:39 Urine RBC (Auto) 2 /hpf (0-3) 12/12/16 11:39 Ur Squamous Epith Cells 26 /hpf (0-5) H 12/12/16 11:39 Stool Leukocytes, Qual Positive (NEGATIVE) H 12/12/16 23:21 C. difficile Ag & Toxin Negative (NEGATIVE) 12/12/16 23:21 Giardia Antigen Not detected (Not Detected) 05/10/17 13:03 Influenza Typ A,B (EIA) Negative for flu a/b (NEGATIVE) 12/12/16 Unknown Attending/Attestation - Attestation I have personally seen and examined this patient.: Yes I have fully participated in the care of the patient.: Yes I have reviewed all pertinent clinical information, including history, physical exam and plan: Yes Notes (Text): 12/15/16 15:59 Patient was seen and examined at bedside with the resident Patient is clinically improving No complaints of diarrhea, nausea, vomiting. Continue IV antibiotics Discharge planning on oral antibiotics I discussed the plan of care with the resident and agree with the above history and assessment/plan by the resident.
[2016-12-14 17:25] VITALS: BP 109/63; PULSE 60; TEMP 98.6; O2SAT 96
== END 2016-12-14 17:55 | disposition home or self-care (01) | DRG 641 ==
LOC: C.ER 18:18 → C.9E 21:42 → C.3T 22:11
PROVIDERS: ADMIT Family Medicine; ATTEND Family Medicine
DX: E86.0 Dehydration (principal); E11.9 Type 2 diabetes mellitus without complications; I10 Essential (primary) hypertension; R19.7 Diarrhea, unspecified; R10.9 Unspecified abdominal pain; E78.5 Hyperlipidemia, unspecified